=== PATIENT | female | born 1990 | race Two or more races ===

== ENCOUNTER 2021-04-29 14:15 | Inpatient (IN) | payer OTHER ==
[~2021-04-29] VITALS: Ht 162.6 cm; Wt 119.7 kg
[2021-05-12] MEDS ORDERED: PRENATABS RX T1 EACH PO (11:59)
[2021-05-12] MEDS ORDERED: COD LIVER OIL1 EACH (12:00)
[2021-05-13] MEDS ORDERED: MAXIMUM D3325 MCG (16:40)
== END 2021-05-16 17:50 | disposition home or self-care (01) | DRG 788 ==
LOC: LDR 05-06 14:15 → OB/GYN 05-13 12:58
PROVIDERS: ADMIT Obstetrics & Gynecology; ATTEND Obstetrics & Gynecology
PROC: 3E033VJ Introduction of Other Hormone into Peripheral Vein, Percutaneous Approach (ICD-10-PCS; 2021-05-13)
PROC: 4A1HXFZ Monitoring of Products of Conception, Cardiac Rhythm, External Approach (ICD-10-PCS; 2021-05-13)
PROC: 10D00Z1 Extraction of Products of Conception, Low, Open Approach (ICD-10-PCS; principal; 2021-05-13 19:00)
DX: O65.9 Obstructed labor due to maternal pelvic abnormality, unspecified (principal); O48.0 Post-term pregnancy; Z3A.41 41 weeks gestation of pregnancy; Z37.0 Single live birth

== ENCOUNTER 2021-05-12 11:49 | Outpatient (CLI) | payer OTHER ==
[2021-05-12] MEDS ORDERED: PRENATABS RX T1 EACH PO (11:59)
[2021-05-12] MEDS ORDERED: COD LIVER OIL1 EACH (12:00)
[2021-05-13] MEDS ORDERED: MAXIMUM D3325 MCG (16:40)
== END 2021-05-13 12:57 | disposition still patient (30) ==
LOC: OBS/DEL 11:49
PROVIDERS: ATTEND Obstetrics & Gynecology
DX: O48.0 Post-term pregnancy (principal); Z3A.40 40 weeks gestation of pregnancy